=== PATIENT | female | born 1995 | race Caucasian/White ===

== ENCOUNTER 2024-04-04 18:32 | Inpatient (IN) | payer BC ==
[2024-04-04] MEDS ORDERED: Misoprostol 200 MCG TAB PR PRN (18:37)
[2024-04-04] MEDS ORDERED: Acetaminophen 500 MG TAB PO PRN (18:37)
[2024-04-04] MEDS ORDERED: hydrALAZINE 20 MG/ML VIAL SLOW IVP PRN (18:37)
[2024-04-04] MEDS ORDERED: HYDROcodone/Acetaminophen 5/325 mg Tablet PO PRN ×2 (18:37)
[2024-04-04] MEDS ORDERED: Oxytocin 30 units/NS 500 ML 500 ML IV SCH (18:37)
[2024-04-04] MEDS ORDERED: Tranexamic Acid 1,000 MG/10 ML VIAL IVP PRN (18:37)
[2024-04-04] MEDS ORDERED: fentaNYL 50 mcg/mL 1 mL Vial SLOW IVP PRN (18:37)
[2024-04-04] MEDS ORDERED: Diphenoxylate HCl/Atropine Tablet PO PRN ×2 (18:37)
[2024-04-04] MEDS ORDERED: Methylergonovine 0.2 MG/ML VIAL IM PRN (18:37)
[2024-04-04] MEDS ORDERED: Carboprost 250 MCG/ML AMP IM PRN (18:37)
[2024-04-04] MEDS ORDERED: Ondansetron PF 4 MG/2 ML Vial IVP PRN (18:37)
[2024-04-04] MEDS ORDERED: Promethazine HCl 25 MG/ML VIAL IM PRN (18:37)
[2024-04-04] MEDS ORDERED: Zolpidem Tartrate 5 MG TAB PO PRN (18:37)
[2024-04-04 19:15] VITALS: BMI 24.4
[2024-04-04] MEDS: Misoprostol 100 MCG TAB VAG SCH (19:57)
[2024-04-04 20:08] LABS: Hematocrit 33.7 % (34.9-44.5); Hemoglobin 11.6 g/dL (12.0-15.5); Mean Corpuscular HGB CONC 34.4 g/dL (32.0-36.0); Mean Corpuscular Volume 87.1 fL (81.6-98.3); Mean Platelet Volume 12.5 fL (7.4-10.4); Platelet Count 174 10x3/uL (150-450); RBC Distribution Width 13.4 % (11.5-14.5); Red Blood Cell (RBC) Count 3.87 10x6/uL (3.90-5.03); White Blood Cell (WBC) Count 12.2 10x3/uL (3.5-10.5)
[2024-04-04] MEDS: Lactated Ringer's 1,000 ML IV SCH (21:40)
[2024-04-04 22:08] LABS: Syphilis Antibody Nonreactive (Nonreactive); Syphilis Antibody Index 0.05 S/CO (<1.00 Non-Reactive)
[2024-04-04 22:09] LABS: HBsAg Index 0.25 S/CO (0-0.99); Hep B Surf Ag - L&D Non-Reactive S/CO (NonReactive)
[2024-04-05] MEDS: Terbutaline Sulfate 1 MG/ML VIAL ONE (00:36)
[2024-04-05] MEDS: Lidocaine 1% (PF) 30 ML VIAL SC PRN (05:55)
[2024-04-05] MEDS: Ibuprofen 800 MG TAB PO PRN ×2 (06:50→13:51)
[2024-04-05] MEDS: Oxytocin 30 units/NS 500 ML 500 ML IV SCH (07:31)
[2024-04-05] MEDS ORDERED: Lanolin Ointment 7 GM TUBE TOP PRN (08:23)
[2024-04-05] MEDS ORDERED: Milk Of Magnesia 30 ML UDCUP PO PRN (08:23)
[2024-04-05] MEDS ORDERED: Bisacodyl 10 MG SUPP PR PRN (08:23)
[2024-04-05] MEDS ORDERED: hydrALAZINE 20 MG/ML VIAL SLOW IVP PRN (08:23)
[2024-04-05] MEDS ORDERED: diphenhydrAMINE 25 MG CAP PO PRN (08:23)
[2024-04-05] MEDS: Boostrix 0.5 ML (Tdap) VIAL (>/=7 yrs of age) IM ONE (09:26)
[2024-04-05] MEDS: Docusate 100 MG CAP PO SCH (09:27)
[2024-04-05] MEDS: Prenatal Vitamin 1 TAB PO SCH (09:27)
[2024-04-05] MEDS: Ferrous Sulfate 325 MG TAB PO SCH ×2 (09:28→17:05)
[2024-04-05] MEDS: traMADol HCl 50 MG TAB PO PRN (21:39)
[2024-04-05] MEDS ORDERED: Witch Hazel 100 PAD JAR TOP PRN (22:16)
[2024-04-06 19:01] VITALS: BP 138/81; TEMP 97.8
== END 2024-04-06 18:10 | disposition home or self-care (01) | DRG 807 ==
LOC: CSHLD 18:32 → CSHPP 04-05 08:15
PROVIDERS: ADMIT Obstetrics & Gynecology; ATTEND Obstetrics & Gynecology
PROC: 10E0XZZ Delivery of Products of Conception, External Approach (ICD-10-PCS; principal; 2024-04-05)
PROC: 0KQM0ZZ Repair Perineum Muscle, Open Approach (ICD-10-PCS; 2024-04-05)
DX: O24.429 Gestational diabetes mellitus in childbirth, unspecified control (principal); Z37.0 Single live birth; Z3A.39 39 weeks gestation of pregnancy; O70.1 Second degree perineal laceration during delivery
CPT/HCPCS: 36416; 85027; 86780; 86850; 86900; 86901; 87340; J2590; J3105; J7120

== ENCOUNTER 2025-03-19 06:22 | Emergency (ER) | payer BC ==
[2025-03-19 07:23] LABS: #Basophils 0.04 10x3/uL (0.0-0.2); #Eosinophils 0.07 10x3/uL (0.0-0.5); #Monocytes 0.43 10x3/uL (0.0-1.1); #Neutrophils 4.49 10x3/uL (1.5-8.4); %Basophils 0.5 % (0.0-2.0); %Eosinophils 0.9 % (0.0-6.0); %Lymphocytes 32.4 % (18.0-47.0); %Monocytes 5.8 % (0.0-10.0); %Neutrophils 60.3 % (40.0-75.0); Hematocrit 41.7 % (34.9-44.5); Hemoglobin 14.4 g/dL (12.0-15.5); Mean Corpuscular Hemoglobin 29.0 pg (27.0-33.0); Mean Corpuscular Volume 84.1 fL (81.6-98.3); Platelet Count 285 10x3/uL (150-450); Red Blood Cell (RBC) Count 4.96 10x6/uL (3.90-5.03); White Blood Cell (WBC) Count 7.46 10x3/uL (3.5-10.5)
[2025-03-19 07:38] LABS: ALT (SGPT) 13 U/L (Less than 34); AST (SGOT) 13 U/L (11-34); Albumin 5.1 g/dL (3.1-4.5); Alkaline Phosphatase 95 U/L (40-110); Anion Gap 18 mmol/L (10-20); BUN (Urea Nitrogen) 9 mg/dL (7.0-18.7); Bilirubin, Total 0.6 mg/dL (0.3-1.2); Calc. Creatinine Clearance 0 mL/min (70-130); Calcium 10.5 mg/dL (7.8-10.44); Carbon Dioxide 24 mmol/L (22-29); Chloride 104 mmol/L (98-107); Globulin 3.5 g/dL (2.4-3.5); Glucose 114 mg/dL (70-105); Potassium 3.9 mmol/L (3.5-5.1); Sodium 142 mmol/L (136-145)
[2025-03-19 07:45] LABS: Troponin I Less than 0.010 ng/mL (< 0.028)
[2025-03-19 07:52] LABS: Magnesium 2.1 mg/dL (1.6-2.6)
[2025-03-19 08:07] LABS: BHCG - Serum Negative (NEGATIVE)
[2025-03-19 08:08] LABS: Pregs Control Background? CLEAR/WHITE (CLR/WHITE); Pregs Control Bar Appear? YES (CONTROL BAR)
== END 2025-03-19 08:55 | disposition home or self-care (01) ==
LOC: CSHERS 06:22
DX: I44.2 Atrioventricular block, complete (principal); I10 Essential (primary) hypertension; R29.700 NIHSS score 0
CPT/HCPCS: 80053; 83735; 84484; 84703; 85025; 93005; 99283